=== PATIENT | male | born 1955 | race Caucasian/White ===

== ENCOUNTER → 2019-05-10 | Outpatient (CLI) | payer OTHER ==
--- NOTE | 2019-05-10 16:53 | KCIC ---
EXAM: Chest, 2 views. HISTORY: Asbestos exposure. COMPARISON: None. FINDINGS: 2 views of the chest are obtained. There is no infiltrate, pleural effusion or pneumothorax. The heart is normal in size. IMPRESSION: No acute pulmonary finding. Electronically signed by: Arlyn Malhotra MD (05/10/2019 4:50 PM) [place] [id number]
== END | disposition home or self-care (01) ==
LOC: KCIC 14:58
DX: Z77.090 Contact with and (suspected) exposure to asbestos (principal)
CPT/HCPCS: 71046